=== PATIENT | female | born 1985 | race Caucasian/White ===

== ENCOUNTER → 2018-06-23 15:19 | Outpatient (CLI) | payer MEDICAID, SELFPAY ==
[2018-06-30 09:55] LABS: HPV Reflexed? NOT INDICATED
== END ==
PROVIDERS: Visit Provider Obstetrics & Gynecology
DX: Z12.4 Encounter for screening for malignant neoplasm of cervix (principal)
CPT/HCPCS: 88175; G0145

== ENCOUNTER → 2018-08-25 13:23 | Outpatient (CLI) | payer MEDICAID, SELFPAY ==
[2018-08-25 17:14] LABS: Chlamydia Trachomatis by PCR Negative (Negative); Neisserai gonorrhoeae by PCR Negative (Negative); Probe Check PASS; Sample Adequacy Control PASS; Specimen Processing Control PASS
--- OUTSIDE RECORDS SUMMARY | 2018-11-29 04:02 | XMS RPT_ITS ---
:1985 Author Organization [facility] Care Team Providers Name Role Phone GIBSON VIEIRA Admitting Unavailable GIBSON VIEIRA Attending Unavailable GIBSON VIEIRA Primary Care Unavailable GIBSON VIEIRA Consulting Unavailable PROVIDER, UNKNOWN Consulting Unavailable PROVIDER, UNKNOWN Consulting Unavailable PROVIDER, UNKNOWN Consulting Unavailable WALT MOULTON DO Admitting Unavailable WALT MOULTON DO Attending Unavailable WALT MOULTON DO Primary Care Unavailable GIBSON VIEIRA Consulting Unavailable GIBSON VIEIRA Referring Unavailable PROVIDER, UNKNOWN Consulting Unavailable PROVIDER, UNKNOWN Consulting Unavailable PROVIDER, UNKNOWN Consulting Unavailable GIBSON VIEIRA Consulting Unavailable GIBSON VIEIRA Admitting Unavailable GIBSON VIEIRA Attending Unavailable GIBSON VIEIRA Primary Care Unavailable PROVIDER, UNKNOWN Consulting Unavailable PROVIDER, UNKNOWN Consulting Unavailable PROVIDER, UNKNOWN Consulting Unavailable Carlee Brooks Attending Unavailable Carlee Brooks Unavailable PROBLEMS PROBLEMS DATE TYPE CONDITION / CODE ATTENDING STATUS SOURCE 08/25/2018 Unknown Z11.3 - Encounter Carlee Brooks Active Charlene for screening for Community infections with a Hospital predominantly Repository sexual mode of transmission / Z11.3(ICD-10) 06/23/2018 Unknown Z12.4 - Encounter Carlee Brooks for screening for Community malignant neoplasm Hospital of cervix / Repository Z12.4(ICD-10) 04/16/2018 Admitting Chest pain, WALT MOULTON Active [facility] Diagnosis unspecified [facility] R079(ICD-10) Hospital Repository 04/16/2018 Principle Chondrocostal DIDUR, 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 [facility] / Hospital M940(ICD-10) Repository 04/16/2018 Secondary Shortness of breath DIDUR, WALT Active Bl[facility] Diagnosis / R0602(ICD-10) [facility] Repository 04/16/2018 Secondary Nicotine DIDCORY, WALT Active [facility] Diagnosis dependence, [facility] cigarettes, Hospital uncomplicated / Repository Y99436(ICD-10) 04/16/2018 Secondary Family history of DIDWALT RAY Active Bl[facility] Diagnosis stroke / [facility] Z823(ICD-10) Hospital Repository PROCEDURES PROCEDURES No Procedure Records FoundRESULTS RESULTS CT/NG [facility] BY PCR Collected: 08/25/2018 Status: F Source: CHARLENE 11:[address] [facility] REPOSITORY TYPE CODE TESTS RESULT OUT OF RANGE REFERENCE UNITS LAB L8200.2100 Negative Normal Chlam Negative Trac PCR LAB L8200.2200 Negative Normal NG by Negative PCR Performed By: #### L8200.2000 #### Charlene [facility] [place] [place] [facility] [place], [address] PAP I-G W/RFX HRHPV Collected: 06/23/2018 Status: F Source: CHARLENE 2:[address] [facility] REPOSITORY Order Comment: CYTOLOGY INFORMATION: - CLINICAL INFORMATION: - DATE LMP/MENOPAUSE: 05/22/18 LMP - COLLECTION VIAL: Thin Prep Vial - COMMERCIAL LOAN ADMINISTRATOR SOURCE: CERVICAL/ENDOCERVICAL - COLLECTION TECHNIQUE: BRUSH/SPATULA Specimen Comment: Source.............Cervix;Endocervix Specimen Comment: LMP / Prev Treat...UDC=[id number] Specimen Comment: No. of containers..01 ThinPrep Vial Specimen Comment: A duplicate report has been generated due to demographic Specimen Comment: updates. TYPE CODE TESTS RESULT OUT OF RANGE REFERENCE UNITS LAB L7400.0800 . Normal DIAGN Comment Result Comment: NEGATIVE FOR INTRAEPITHELIAL LESION AND MALIGNANCY. LAB L7400.0900 . Normal ADEQ Comment Result Comment: Satisfactory for evaluation. Endocervical and/or squamous metaplastic cells (endocervical component) are present. LAB L7400.1400 . Normal PERFORM Comment Result Comment: Aspen Nuñez, Apparel Fashion Designer (ASCP) LAB L7400.2575 . Normal TEST METHOD Comment Result Comment: This liquid based ThinPrep(R) pap test was screened with the use of an image guided system. LAB L7400.2600 . Normal . COMM LAB L7400.2700 . Normal PAPSMR Comment Result Comment: The Pap smear is a screening test designed to aid in the detection of premalignant and malignant conditions of the uterine cervix. It is not a diagnostic procedure and should not be used as the sole means of detecting cervical cancer. Both false-positive and false-negative reports do occur. LAB L7400.2800 . Normal HPV RFLX Comment Result Comment: The HPV DNA reflex criteria were not met with this specimen result therefore, no HPV testing was performed. Performed at: - [facility] [id number] Actuarial Science Professor: Nora Mackenzie MD, Phone: [phone] Performed By: #### L7400.0350 #### [facility] (refer to report for specific site) refer to report for address and phone number STRESS TEST (DGEST) Observed: 06/01/2018 Status: F Source: BLADE GOMEZ NO IMAGING 9:45 AM [place] [address] Patient: JESSIE SAVAGE Phone#: : 1985 Age: 33 Gender: F Pt. Type: Out Account: [id number] Location: [facility] Ordering: GIBSON VIEIRA Exam Date: 06/01/2018/10:00 Family Phys: Charge Code: [id number] Physician: Webb Order #: [id number] DLP Dose#: PROCEDURE: DGEST HISTORY: 33-year-old female with atypical chest pain, active smoker and family history of premature coronary artery disease INDICATIONS: Chest pain TECHNIQUE: Electrocardiogram stress test was performed using the protocol listed below. STRESS RESULTS: Protocol: Felix Duration: 10:00minutes Reason for termination: Leg fatigue Resting Heart Rate: 80 bpm. Resting Blood Pressure: 139/66 mmHg Peak Heart Rate: 187 which is 100% of maximum predicted heart rate Peak Blood Pressure: 180/76 at 1:50 Recovery Workload: 11.7 METs. Symptoms with stress: No exercise induced chest pain EKG Data EKG at Baseline: Normal sinus rhythm. Nonspecific ST changes. EKG with Stress: [address] depressions in leads II, III, aVF and V4 to V6, not meeting criteria for ischemia. No significant dysrhythmias during the exercise. CONCLUSION: 1. Negative exercise EKG only stress test for ischemia. 2. Average functional capacity. 3. No exercise induced chest pain. 4. Normal blood pressure and heart rate response to exercise. 5. No significant dysrhythmias noted. 6. Cortez treadmill score: 10 (low risk of CHD). Continued Report - Page 2 of 2 Patient: JESSIE SAVAGE. Phone#: : 1985 Age: 33 Gender: F Pt. Type: Out Account: [id number] Location: [facility] Ordering: GIBSON [facility] Exam Date: 06/01/2018/10:00 Family Phys: Charge Code: [id number] Physician: Webb Order #: [id number] DLP Dose#: 7. No nuclear images are associated with the study. 8. No prior study available for comparison. Dictated by: AILIN WARD on 06/01/2018 at 9:48 Approved by: AILIN WARD on 06/01/2018 at 9:48 EMERGENCY REPORT Observed: 04/18/2018 Status: F Source: BLADE GOMEZ 5:24 AM [facility] EMERGENCY ROOM REPORT NAME ACCOUNT SEX AGE ADMIT DISCHARGE PT MED. RECORD# NUMBER DATE DATE TYPE JANETTE [id number] F 32 04/16/18 04/17/18 3 JESSIE Treviño [id number] ROOM: ER DATE OF : 1985 DICTATING PHYSICIAN: Walt Moulton ADDENDUM DIAGNOSTIC DATA: White count was 9, hemoglobin 15.5, hematocrit 43.6, and platelet count 192,000. Her d-dimer was negative at 142. Her amylase was normal at 44. Her BNP was normal at 35. Magnesium was normal at 2. Troponin was normal at less than 0.01. Sodium was 137, potassium 3.6, chloride 103, CO2 of 26.6, BUN 9, creatinine 0.8, and glucose 90. AST was 17, ALT 16, alkaline phosphatase 60, total bilirubin 0.9, and anion gap 11. Chest x-ray shows no acute disease. EMERGENCY DEPARTMENT COURSE AND TREATMENT: As noted on the examination, the patient had some left parasternal tenderness on palpation. In light of her negative work-up here, I am going to place her on ibuprofen 800 mg one p.o. t.i.d., dispense #20 with no refill. I did give her a dose here prior to discharge. We did talk about a stress test. She does not have a lot of risk factors but she has some, mainly smoking and family history. She is only 32 years old, but I did advise her that if these pains become recurrent or they do not get better on the ibuprofen that she should talk to her primary care physician, Dr. Gibson Vieira, about further cardiac work-up including a stress test. At this point, I felt the patient could be discharged home. I did check a d-dimer because she had just driven up here from [place] last week when she was on vacation, but that was negative so at this point I did not feel we needed to do a CT of the chest. Her EKG looked okay. I discussed all of the laboratory, EKG and chest x-ray findings with the patient and family. They did verbalize understanding. The patient was discharged in clinically stable condition with instructions to follow up with Dr. Gibson Angeles in 3 to 5 days. Avoid any heavy lifting or other exertional activities. DIAGNOSIS: Costochondritis. Dictated By: Walt Moulton DO 04/16/18 23:02 JOB #: [id number] Transcribed By: vinod 04/17/18 09:56 Electronically signed by: E-Sign: Dr. Walt Moulton D.O. 04/18/18 05:23 Page 1 of 1 JESSIE SAVAGE Emergency Room Report EMERGENCY REPORT Observed: 04/18/2018 Status: F Source: BLADE GOMEZ 5:23 AM [facility] EMERGENCY ROOM REPORT NAME ACCOUNT SEX AGE ADMIT DISCHARGE PT MED. RECORD# NUMBER DATE DATE TYPE JANETTE [id number] Cierra 32 04/16/18 04/17/18 Reji Treviño [id number] ROOM: ER DATE OF : 1985 DICTATING PHYSICIAN: Walt Moulton TIME SEEN: 9:35 p.m. HISTORY OF PRESENT ILLNESS: This is a 32-year-old white female complaining of some left-sided chest pain which she states feels tight and at other times describes as burning. She states at times it will take my breath away. She does admit to some associated shortness of breath and states at times the pain will radiate down her left arm. She just got back from [place]; they drove home. She does complain of some palpitations sometimes. She states she has had this chest pain off and on for the past week. It has been gradually getting worse. The duration has been all day today. It is not a fleeting-type pain. She states it is presently a 3 or 4 on a severity scale of 1-10. Earlier today, it was an 8 at max. She denies any nausea, vomiting or diaphoresis. She states she has felt tired and fatigued all day long today. PAST MEDICAL HISTORY: Denied. PAST SURGICAL HISTORY: Previous . ALLERGIES: No known drug allergies. FAMILY HISTORY: Mother had a myocardial infarction at age 51, and mom does have 2 stents. SOCIAL HISTORY: She is a smoker of one pack per day and does admit to occasional alcohol use. She denies any drugs. She does live at home with her family. REVIEW OF SYSTEMS: She does admit to chest pain and shortness of breath. She denies any cough, sputum, wheezing, abdominal pain, nausea, vomiting, diarrhea, constipation, melena, hematochezia, headache, numbness, or unsteady gait. She does admit to some diffuse generalized weakness. She denies any neck or back pain but does state the chest pain does at times radiate down into her left arm. She denies any diaphoresis. Further review of systems is negative. PHYSICAL EXAMINATION: Blood pressure is 138/95, pulse 66, respirations 14, temperature 97.7, pulse oximetry 96%, and weight 170 pounds. The patient is alert and oriented x3. She appears in no acute distress. She is pleasant and cooperative. HEENT: Head appears atraumatic. Pupils are equal and reactive to light. Red reflexes Page 1 of 2 JESSIE SAVAGE Emergency Room Report are intact bilaterally. Extraocular muscles are intact. No conjunctival injection. No scleral icterus or lid edema. Ears: TMs are intact bilaterally. No erythema noted. Nose exhibits no rhinorrhea or epistaxis. Mouth: Mucous membranes are moist. No pharyngeal erythema. Uvula is midline and elevates. Neck is supple. Trachea is midline. No JVD or lymphadenopathy. No posterior cervical tenderness. No nuchal rigidity. Lungs are clear to auscultation in all lung cunningham. No adventitious sounds are noted. No accessory muscle use. CV: Heart rate and rhythm are regular without murmur. Chest wall does exhibit some left parasternal tenderness on palpation. No crepitus or subcutaneous emphysema. Abdomen is soft and nontender with normoactive bowel sounds x4 quadrants. No guarding or rigidity. No rebound. No palpable abdominal masses. No hepatosplenomegaly. Back exhibits no midline or paraspinal region tenderness. No increased paraspinal muscle rigidity. Negative Mars's sign. Extremities: No edema or cyanosis. Peripheral pulses are intact. No motor or sensory deficits are noted. Hand groundwater consultant are strong and symmetric. Skin is warm and dry. No diaphoresis or rash. Neurologic examination shows the patient to be alert and oriented x4. No motor or sensory deficits are noted. Normal speech. The patient is pleasant and cooperative with a normal affect. DIAGNOSTIC DATA: EKG at 2132 hours shows a normal sinus rhythm at a rate of [address]-segment changes are noted. [place] is approximately 30 degrees. EMERGENCY DEPARTMENT COURSE AND TREATMENT: Presently, we will obtain a cardiac work-up. We will also include a d-dimer and an amylase. We will then reevaluate. Dictated By: Walt Moulton DO 04/16/18 21:55 JOB #: [id number] Transcribed By: vinod 04/17/18 07:30 Electronically signed by: E-Sign: Dr. Walt Moulton D.O. 04/18/18 05:23 Page 2 of 2 JESSIE SAVAGE Emergency Room Report URINE Collected: 04/16/2018 Status: F Source: [facility] 10:50 PM [facility] REPOSITORY TYPE CODE TESTS RESULT OUT OF REFERENCE UNITS RANGE LAB NEGATIVE UR(LOINC) UR NEGATIVE LAB INTERNAL QC(LOINC) INTERNAL QC PASS LAB EXTERNAL QC DONE?(LOINC) EXTERNAL QC YES DONE? Performed By: #### [id number] #### [facility],[address] [place] [address] CHEST 1 VIEW Observed: 04/16/2018 Status: F Source: [facility] 10:12 PM [facility] REPOSITORY [place] [address] Patient: JESSIE SAVAGE Phone#: : 1985 Age: 32 Gender: F Pt. Type: ER Account: [id number] Location: [facility] Ordering: WALT MOULTON Exam Date: 04/16/2018/22:03 Family Phys: GIBSON VIEIRA Charge Code: [id number] Physician: Webb Order #: [id number] DLP Dose#: PROCEDURE: X-RAY CHEST 1 VIEW COMPARISON: [facility], XR, CHEST PA/LAT, 04/08/2017, 10:43. INDICATIONS: Chest pain FINDINGS: LUNGS: Normal. No significant pulmonary parenchymal abnormalities. VASCULATURE: Normal. Unremarkable pulmonary vasculature. CARDIAC: Normal. No cardiac silhouette abnormality or cardiomegaly. MEDIASTINUM: Normal. No visible mass or adenopathy. PLEURA: Normal. No effusion or pleural thickening. BONES: Normal. No fracture or visible bony lesion. OTHER: Negative. CONCLUSION: No acute disease. No significant change has occurred. Dictated by: Za Colvin MD on 04/17/2018 at 8:28 Approved by: aZ Colvin MD on 04/17/2018 at 8:28 CBC Collected: 04/16/2018 Status: F Source: [facility] 10:05 PM [facility] REPOSITORY TYPE CODE TESTS RESULT OUT OF RANGE REFERENCE UNITS LAB CBC(LOINC) CBC Result Comment: CBC-COMPLETE BLOOD COUNT LAB WBC(LOINC) 4.5 - 10.8 x 10EE3/UL WBC 9.0 LAB RBC(LOINC) 4.10 - x 10EE6/UL 5.30 RBC 4.79 LAB HEMOGLOBIN(LOINC) 12.0 - g/dl 16.0 HEMOGLOBIN 15.5 LAB HEMATOCRIT(LOINC) 34.0 - % 46.0 HEMATOCRIT 43.6 LAB MCV(LOINC) 80 - 99 fl MCV 91 LAB MCH(LOINC) 27 - 33 pg MCH 32 LAB MCHC(LOINC) 32 - 36 X10 3 MCHC 36 LAB RDW/CV(LOINC) 12.0 - % 15.6 RDW/CV 12.5 LAB PLATELET(LOINC) 150 - 450 x10EE3/UL PLATELET 192 LAB MPV(LOINC) 6.6 - 10.5 fl MPV 10.1 Result Comment: AUTOMATED DIFFERENTIAL LAB NEUT %(LOINC) 46.0 - 76.0 % NEUT % 59.3 LAB LYMPH %(LOINC) 20.0 - 45.0 % LYMPH % 31.8 LAB MONOS %(LOINC) 0.0 - 10.0 % MONOS % 5.6 LAB EO %(LOINC) 0.0 - 7.0 % EO % 2.6 LAB BASO %(LOINC) 0.0 - 2.0 % BASO % 0.7 LAB Lymph #(LOINC) 0.80 - 2.80 x10EE3/U L Lymph # High 2.90 LAB Neut #(LOINC) 1.50 - 7.10 x10EE3/U L Neut # 5.30 LAB [place] #(LOINC) 0.20 - 1.00 x10EE3/U L [place] # 0.50 LAB EO #(LOINC) 0.00 - 0.50 x10EE3/U L EO # 0.20 LAB Baso #(LOINC) 0.00 - 0.10 x10EE3/U L Baso # 0.10 LAB MANUAL DIFF(LOINC) MANUAL DIFF N/A LAB MORPHOLOGY(LOINC ) MORPHOLOGY N/A Result Comment: {CD] Performed By: #### [id number] #### [facility],[address] [place], [place] [id number] CMP WITH EGFR Collected: 04/16/2018 Status: F Source: [facility] 10:05 PM [facility] REPOSITORY TYPE CODE TESTS RESULT OUT OF RANGE REFERENCE UNITS LAB CMP with eGFR(LOINC) CMP with eGFR Result Comment: COMPREHENSIVE METABOLIC PANEL LAB SODIUM(LOINC) 136 - 145 mmol/l SODIUM 137 LAB POTASSIUM(LOINC) 3.5 - 5.1 mmol/L POTASSIUM 3.6 LAB CHLORIDE(LOINC) 98 - 107 mmol/L CHLORIDE 103 LAB CO2(LOINC) 21.0 - mmol/L 31.0 CO2 26.6 LAB GLUCOSE(LOINC) 74 - 106 mg/dl GLUCOSE 90 LAB BUN(LOINC) 6 - 20 mg/dl BUN 9 LAB CREATININE(LOINC) 0.6 - 1.2 mg/dl CREATININE 0.8 LAB AST/SGOT(LOINC) 13 - 39 U/L AST/SGOT 17 LAB ALK PHOS(LOINC) 38 - 126 U/L ALK PHOS 60 LAB CALCIUM(LOINC) 8.6 - mg/dl 10.2 CALCIUM 9.2 LAB TOTAL PROTEIN(LOINC) 6.4 - 8.3 g/dl TOTAL PROTEIN 7.2 LAB ALBUMIN(LOINC) 3.4 - 4.8 g/dL ALBUMIN 4.4 LAB GLOBULIN(LOINC) 1.5 - 3.8 G/DL GLOBULIN 2.8 LAB A/G RATIO(LOINC) 0.9 - 1.6 A/G RATIO 1.6 LAB TOTAL BILI(LOINC) 0.0 - 1.5 mg/dl TOTAL BILI 0.9 LAB B/C RATIO(LOINC) 0 - 30 ratio B/C RATIO 11 LAB ALT/SGPT(LOINC) 8 - 35 U/L ALT/SGPT 16 LAB ANION GAP(LOINC) 10 - 20 mmol/L ANION GAP 11 LAB AGE(LOINC) years AGE 32 LAB eGFR(LOINC) 60 - 999 ML/MINUTE eGFR >60 LAB eGFR(AA)(LOINC) 60 - 999 ML/MINUTE eGFR(AA) >60 Result Comment: ACCORDING TO THE NATIONAL KIDNEY DISEASE EDUCATION PROGRAM(NKDE), A NORMAL eGFR IS A VALUE GREATER THAN OR EQUAL TO 60 ML/MIN/1.73 SQ METERS. CHRONIC KIDNEY DISEASE: <60mL/MIN/1.73 SQ METERS KIDNEY FAILURE: <15mL/MIN/1.73 SQ METERS THIS TEST SHOULD ONLY BE USED FOR PATIENTS 18 YEARS OF AGE AND OLDER. Performed By: #### [id number] #### [facility],[address] [place], [place] [address] MAGNESIUM Collected: 04/16/2018 Status: F Source: [facility] 10:05 [facility] REPOSITORY TYPE CODE TESTS RESULT OUT OF REFERENCE UNITS RANGE LAB MAGNESIUM( 1.6 - 2.6 mg/dl LOINC) MAGNESIUM 2.0 Performed By: #### [id number] #### [place] [address] AMYLASE Collected: 04/16/2018 Status: F Source: [facility] 10:05 [facility] REPOSITORY TYPE CODE TESTS RESULT OUT OF REFERENCE UNITS RANGE LAB AMYLASE(GARRICK 29 - 103 U/L NC) AMYLASE 44 Performed By: #### [id number] #### [place] [address] TROPONIN Collected: 04/16/2018 Status: F Source: [facility] 10:05 [facility] REPOSITORY TYPE CODE TESTS RESULT OUT OF REFERENCE UNITS RANGE LAB TROPONIN 0.00 - 0.05 ng/ml I(LOINC) TROPONIN I <0.01 Result Comment: Elevated troponin (above the 99th percentile) usually indicates myocardial ischemia. Results must be interpreted within the clinical setting. 1.Non-ischemic pathology can also cause elevated troponin levels (e.g., acute pulmonary embolism, myocarditis, pericarditis, heart failure, intracranial injury, rhabdomyolisis, sepsis, shock and renal insufficiency). 2.Approximately 1% of healthy adults have elevated troponin levels. 3.Analytical false positive results rarely occur(due to multiple interferences such as heterophile antibodies). Performed By: #### [id number] #### [place] [id number] D-DIMER, QUANTITATIVE Collected: 04/16/2018 Status: F Source: [facility] 10:05 [facility] REPOSITORY TYPE CODE TESTS RESULT OUT OF REFERENCE UNITS RANGE LAB D-DIMER, QUANTITATI VE(LOINC) D-DIMER, QUANTITATIVE Result Comment: QUANT D-DIMER LAB D-DIMER QUANT(LOINC) 0 - 230 ng/ml D-DIMER QUANT 142 Performed By: #### [id number] #### [place] [id number] BNP (B-TYPE NATRIURETIC Collected: 04/16/2018 Status: F Source: BLADE GOME[facility] PEPTIDE) 10:05 PM [facility] REPOSITORY TYPE CODE TESTS RESULT OUT OF RANGE REFERENCE UNITS LAB BNP(LOINC) 1 - 100 pg/ml BNP 35 Performed By: #### [id number] #### [facility],[address] [place] [address] ALLERGIES ALLERGIES DATE TYPE / CODE NAME / CODE REACTION SEVERITY SOURCE Miscellaneous No Known Drug Moderate Blade Turlock Allergy/[id number](S Allergies ([facility]) Modifier) Hospital (Qualifier Repository Value) ENCOUNTERS ENCOUNTERS ADMIT/DISCHARGE ACCOUNT ADMITTING ENCOUNTER LOCATION SOURCE NUMBER CLASS 08/25/2018 [id number] [facility] 9 [facility] ing:[facility] Repository 06/23/2018 [id number] [facility] 6 [facility] ing:[facility] Repository 06/01/2018/ [id number] GIBSON VIEIRA Ambulatory [address] Repository 04/16/2018/ [id number] WALT MOULTON [facility] [place] [address] DO oom: ERBed: A [facility] Repository 02/07/2018 [id number] GIBSON VIEIRA [facility] Repository PAYERS PAYERS ENCOUNTER GUARANTOR PAYER SUBSCRIBER SOURCE 08/25/2018 Jessie Primary Jessie Chang [id number] Insurance:[facility] [id number] PLANPolicy Number: Repository [id number]: [phone] [id number] [phone] () Date:[id number] [address] [place] [address]WJ: 08/25/2018 Secondary NOT GIVENUNK Byron Insurance:SELF PAY [facility] [place] Number: Effective Repository Date:2018-08-25 06/23/2018 Jessie Primary Jessie [id number] Insurance:[facility] [id number] PLANPolicy Number: Repository [id number]: ([phone] [id number] [phone] (HP) Date:[id number] LIT Hunter0URVASHI TRIPLETT [address]DY: 06/23/2018 Secondary NOT GIVENUNK Byron Insurance:SELF PAY [facility] [place] Number: Effective Repository Date:2018-06-23 06/01/2018 KATERINA Primary JESSIE CHEUNGB: Insurance:PRABHJOTEYE JANETTEDOB: [facility] [id number] [facility] [address] OUTPAT[address] Repository [address] [place] [address] Number: [id number] [place] [id number]: [id number] Date:Plan Name:X2 () 04/16/2018 JESSIE Treviño Primary JESSIE CHEUNGB: Insurance:RED SAVAGEDOB: [facility] [id number] [facility] [address] OUTPAT[address] [place] Number: [id number] [place] [id number]: [id number] Date:Plan Name:X2 () 02/07/2018 [facility] Primary JESSIE CHEUNGB: Insurance:RED CHEUNGB: [facility] [id number] [facility] [address] OUTPATIENTPolicy [address] [place] Number: [id number] [place] [id number]: [id number] [id number] Date:Plan Name:X2 ()
== END ==
PROVIDERS: Visit Provider Obstetrics & Gynecology
DX: Z11.3 Encounter for screening for infections with a predominantly sexual mode of transmission (principal)
CPT/HCPCS: 87491; 87591

== ENCOUNTER → 2019-09-26 10:11 | Outpatient (CLI) | payer MEDICAID, SELFPAY ==
[2019-09-26 12:23] LABS: HIV - WCH Non-Reactive (Nonreactive); Hepatitis B Surface Antigen Non-Reactive (Nonreactive); Hepatitis C Antibody Non-Reactive (Nonreactive)
[2019-09-27 02:56] LABS: Rapid Plasmin Reagin (RPR) NONREACTIVE (NONREACTIVE)
[2019-09-27 14:12] LABS: HSV 2 IgG < 0.91 index (0.00-0.90)
== END ==
PROVIDERS: Visit Provider Advanced Practice Midwife
DX: Z12.4 Encounter for screening for malignant neoplasm of cervix (principal); Z11.3 Encounter for screening for infections with a predominantly sexual mode of transmission
CPT/HCPCS: 36415; 86592; 86695; 86696; 86703; 86803; 87340